=== PATIENT | male | born 1965 | race Caucasian/White ===

== ENCOUNTER 2021-10-13 10:36 | Day surgery (SDC) | payer BC ==
[2021-10-11 15:35] VITALS: BMI 34.3
[2021-10-13] MEDS ORDERED: Bupivacaine PF 0.5% 30 ML VIAL ONE (12:10)
[2021-10-13] MEDS ORDERED: EPINEPHrine 1 MG/ML AMP ONE (12:10)
[2021-10-13] MEDS ORDERED: Thrombin 5000 UNITS/5 ML VIAL ONE (12:10)
[2021-10-13] MEDS ORDERED: Neomycin-Polymyxin 1 ML AMP ONE (12:10)
[2021-10-13] MEDS ORDERED: Fentanyl 250 MCG/5 ML VIAL ONE (12:11)
[2021-10-13] MEDS ORDERED: ceFAZolin (BATCH) 2 GM/100 ML BAG ONE ×2 (12:17→16:43)
[2021-10-13] MEDS ORDERED: PROPOFOL 200 MG/20 ML VIAL ONE (12:30)
[2021-10-13] MEDS ORDERED: Dexamethasone 20 MG/5 ML VIAL ONE (12:30)
[2021-10-13] MEDS ORDERED: Ondansetron PF 4 MG/2 ML Vial ONE ×2 (12:30→15:53)
[2021-10-13] MEDS ORDERED: Glycopyrrolate 0.2 MG/ML 5 ML SYRINGE ONE (12:30)
[2021-10-13] MEDS ORDERED: Rocuronium Bromide 10 MG/ML (10ML VIAL) ONE (12:30)
[2021-10-13] MEDS ORDERED: Lidocaine 1% PF 5 ML VIAL ONE (12:30)
[2021-10-13] MEDS ORDERED: Tamsulosin HCl 0.4 MG CAP ONE (14:46)
[2021-10-13] MEDS ORDERED: Fentanyl 100 MCG/2 ML VIAL ONE (14:49)
[2021-10-13] MEDS ORDERED: HYDROcodone/Acetaminophen 5/325 mg Tablet ONE (16:47)
== END 2021-10-13 17:30 | disposition home or self-care (01) ==
LOC: SDC 10:36
PROVIDERS: ATTEND Neurological Surgery
PROC: 0SB40ZZ Excision of Lumbosacral Disc, Open Approach (ICD-10-PCS; principal; 2021-10-13)
DX: M51.17 Intervertebral disc disorders with radiculopathy, lumbosacral region (principal); M50.123 Cervical disc disorder at C6-C7 level with radiculopathy; G56.03 Carpal tunnel syndrome, bilateral upper limbs; G56.21 Lesion of ulnar nerve, right upper limb; M65.342 Trigger finger, left ring finger; E78.00 Pure hypercholesterolemia, unspecified; Z87.891 Personal history of nicotine dependence; Z79.899 Other long term (current) drug therapy
CPT/HCPCS: 76000; J0171; J0690; J1100; J2405; J2704; J3010; J3370; S0020